=== PATIENT | female | born 1970 | race Caucasian/White ===

== ENCOUNTER 2024-03-19 02:20 | Emergency (ER) | payer OTHER ==
[~2024-03-19] VITALS: Ht 172.7 cm; Wt 117.9 kg
[2024-03-19] MEDS ORDERED: SODIUM CHLORIDE 0.9% 1,000 ML IV ONE (02:30)
[2024-03-19 02:50] LABS: BASO % 0.5 % (0.0-1.0); EOS # 0.1 10*3/uL (0.0-0.4); EOS % 0.6 % (1.0-4.0); HEMATOCRIT 41.7 % (37.0-47.0); LYMPH # 1.5 10*3/uL (1.3-4.4); LYMPH % 16.9 % (27.0-41.0); MEAN CELL VOLUME 84.6 fl (81.0-99.0); MEAN CORPUSCULAR HGB 27.4 pg (27.0-31.0); MEAN CORPUSCULAR HGB CONC 32.4 g/dl (33.0-37.0); MEAN PLATELET VOLUME 9.7 fl (9.6-12.3); MONO # 0.3 10*3/uL (0.1-1.0); MONO % 3.6 % (3.0-9.0); NEUT # 6.8 10*3/uL (2.3-7.9); NEUT % 78.2 % (47.0-73.0); PLATELET COUNT AUTOMATED 268 10*3/uL (130-400); RED BLOOD COUNT 4.93 10*6/uL (4.10-5.10); RED CELL DISTRI WIDTH 13.1 % (0-14.5); WHITE BLOOD COUNT 8.6 10*3/uL (4.8-10.8)
[2024-03-19 03:11] LABS: ALKALINE PHOSPHATASE 92 U/L (46-116); BUN 23 mg/dl (9-23); CHLORIDE 107 mmol/L (98-107); SGPT/ALT 28 U/L (5-49); TOTAL PROTEIN 6.2 gm/dL (6.0-8.0)
== END 2024-03-19 05:28 | disposition home or self-care (01) ==
LOC: ED 02:20
PROVIDERS: Internal Medicine
DX: E86.0 Dehydration (principal); E07.89 Other specified disorders of thyroid; K21.9 Gastro-esophageal reflux disease without esophagitis